=== PATIENT | female | born 1950 | race Two or more races ===

== ENCOUNTER 2025-08-04 21:13 | Emergency (ER) | payer OTHER ==
[~2025-08-04] VITALS: Ht 157.5 cm; Wt 75.7 kg
[2025-08-04] MEDS ORDERED: LIPITOR40 MG (21:54)
[2025-08-04] MEDS ORDERED: KETOROLAC TROMETHAMINE 30 MG VIAL IM STA (22:00)
[2025-08-04] MEDS ORDERED: DEXAMETHASONE SODIUM PHOSPHATE 4 MG/ML VIAL IM STA (22:00)
[2025-08-04] MEDS ORDERED: ORPHENADRINE CITRATE 30 MG/ML AMPUL IM STA (22:01)
[2025-08-04] MEDS ORDERED: METAXALONE400 MG PO (22:26)
[2025-08-04] MEDS ORDERED: DICLOFENAC POTA50 MG PO (22:26)
[2025-08-04] MEDS ORDERED: MEDROLPACK PO (22:26)
[2025-08-04] MEDS ORDERED: ORPHENADRINE CITRATE 30 MG/ML AMPUL ONE (22:33)
[2025-08-04] MEDS ORDERED: DEXAMETHASONE SODIUM PHOSPHATE 4 MG/ML VIAL ONE (22:33)
[2025-08-04] MEDS ORDERED: KETOROLAC TROMETHAMINE 30 MG VIAL ONE (22:33)
== END 2025-08-04 23:04 | disposition home or self-care (01) ==
LOC: ER 21:14
DX: M54.59 Other low back pain (principal); I10 Essential (primary) hypertension